=== PATIENT | female | born 1985 | race American Indian/Alaskan Native ===

== ENCOUNTER 2017-06-11 18:42 | Emergency (ER) | payer SELFPAY ==
[2017-06-11 18:52] VITALS: BP 140/89
== END 2017-06-11 21:42 | disposition left against medical advice (07) ==
LOC: ED 18:42
DX: R07.9 Chest pain, unspecified (principal); Z53.21 Procedure and treatment not carried out due to patient leaving prior to being seen by health care provider
CPT/HCPCS: 93005; 93010

== ENCOUNTER 2019-01-24 13:07 | Emergency (ER) | payer OTHER ==
[2019-01-24 13:13] VITALS: BP 119/84
--- NOTE | 2019-01-24 13:20 | Emergency Department Report ---
Blank Doc - Documentation Documentation: This is a 33-year-old female that presents with left shoulder pain. Stated hit her shoulder last year at work. This initial assessment/diagnostic orders/clinical plan/treatment(s) is/are subject to change based on patient's health status, clinical progression and re-assessment by fellow clinical providers in the ED. Further treatment and workup at subsequent clinical providers discretion. Patient/guardians urged not to elope from the ED as their condition may be serious if not clinically assessed and managed. Initial orders include: 1- Patient sent to [facility] for further evaluation and treatment
--- NOTE | 2019-01-24 15:31 | Emergency Department Report ---
ED General Adult HPI - General Chief complaint: Shoulder Injury Stated complaint: LFT ARM/LFT SHOULDER WEAK Time Seen by Provider: 01/24/19 13:19 Source: patient Mode of arrival: Ambulatory Limitations: No Limitations - History of Present Illness Initial comments: Patient is a 33-year-old [place] female who was an accident at work approximately a year ago and is complaining of some chronic neck pain. Patient states for the past week she also has had some radiation of this pain into the left upper extremity. States it is a shooting electrical pain down to her fingers. Her source and she moves her head from [id number] and up and down. Patient states she is seen orthopedic doctor who at this evaluated shoulder she believes she had MRI of just a shoulder only. She was told nothing was wrong. Patient states the pain today is 8 out of 10 in severity. Severity scale (0 -10): 9 - Related Data Previous Rx's Medication Instructions Recorded Last Taken Type Acetaminophen/Codeine [Tylenol #3] 1 tab PO Q6H PRN #20 tab 07/04/15 Unknown Rx Ibuprofen [Motrin] 600 mg PO Q8H PRN #50 tablet 07/04/15 Unknown Rx methOCARBAMOL [Robaxin TAB] 500 mg PO Q6H PRN #14 tablet 01/24/19 Unknown Rx predniSONE [Deltasone] 20 mg PO QDAY #5 tab 01/24/19 Unknown Rx traMADol [Ultram] 50 mg PO Q6HR PRN #12 tablet 01/24/19 Unknown Rx Allergies Allergy/AdvReac Type Severity Reaction Status Date / Time No Known Allergies Allergy Verified 07/04/15 08:40 ED Review of Systems ROS: Stated complaint: LFT ARM/LFT SHOULDER WEAK Other details as noted in HPI Comment: All other systems reviewed and negative ED Past Medical Hx - Past Medical History Additional medical history: PCOS - Surgical History Past Surgical History?: No - Social History Smoking Status: Never Smoker Substance Use Type: None - Medications Home Medications: Home Medications Medication Instructions Recorded Confirmed Last Taken Type Acetaminophen/Codeine [Tylenol #3] 1 tab PO Q6H PRN #20 tab 07/04/15 Unknown Rx Ibuprofen [Motrin] 600 mg PO Q8H PRN #50 tablet 07/04/15 Unknown Rx methOCARBAMOL [Robaxin TAB] 500 mg PO Q6H PRN #14 tablet 01/24/19 Unknown Rx predniSONE [Deltasone] 20 mg PO QDAY #5 tab 01/24/19 Unknown Rx traMADol [Ultram] 50 mg PO Q6HR PRN #12 tablet 01/24/19 Unknown Rx ED Physical Exam - General Limitations: No Limitations General appearance: alert, in no apparent distress - Head Head exam: Present: atraumatic, normocephalic - Eye Eye exam: Present: normal appearance. Absent: PERRL, EOMI - ENT ENT exam: Present: mucous membranes moist - Neck Neck exam: Present: normal inspection, tenderness, full ROM - Respiratory Respiratory exam: Present: normal lung sounds bilaterally. Absent: respiratory distress, wheezes, rales, rhonchi - Cardiovascular Cardiovascular Exam: Present: regular rate, normal rhythm. Absent: systolic murmur, diastolic murmur, rubs, gallop - GI/Abdominal GI/Abdominal exam: Present: soft, normal bowel sounds - Extremities Exam Extremities exam: Present: normal inspection - Back Exam Back exam: Present: normal inspection - Neurological Exam Neurological exam: Present: alert, oriented X3 - Psychiatric Psychiatric exam: Present: normal affect, normal mood - Skin Skin exam: Present: warm, dry, intact, normal color. Absent: rash ED Course Vital Signs 01/24/19 01/24/19 13:12 13:19 Temperature 97.5 F L 97.5 F L Pulse Rate 70 70 Respiratory 16 16 Rate Blood Pressure 119/84 Blood Pressure 119/84 [Left] O2 Sat by Pulse 99 99 Oximetry ED Medical Decision Making - Medical Decision Making Patient likely with cervical radiculopathy. Patient to be referred back to her orthopedic doctor who hopefully will take images of her neck. Patient discharged home and this was symptomatically. Critical care attestation.: If time is entered above; I have spent that time in minutes in the direct care o f this critically ill patient, excluding procedure time. ED Disposition Clinical Impression: Cervical radiculopathy Disposition: - TO HOME OR SELFCARE Is pt being admited?: No Does the pt Need Aspirin: No Condition: Stable Instructions: Cervical Radiculopathy (ED) Additional Instructions: Least follow with your neurologist or orthopedics surgeon regarding having an MRI done of the neck Time of Disposition: 15:31
== END 2019-01-24 15:59 | disposition home or self-care (01) ==
LOC: ED 13:07
DX: M54.12 Radiculopathy, cervical region (principal)
CPT/HCPCS: 99282